=== PATIENT | female | born 1995 | race Hispanic/Latino ===

== ENCOUNTER 2019-06-22 18:34 | Observation (INO) | payer OTHER ==
[2019-06-22 19:16] VITALS: BMI 26.4
[2019-06-22] MEDS ORDERED: hydrALAZINE 20 MG/ML VIAL SLOW IVP PRN ×2 (20:28→23:15)
[2019-06-22 21:21] LABS: Bacteria/HPF None Seen HPF (None Seen); Bilirubin Negative (Negative); Blood, Urine Negative (Negative); Clarity Clear (Clear); Glucose, Urine (Dipstick) Normal (Negative); Leukocyte 75 Leu/uL (Negative); Nitrite Negative (Negative); Protein, Urine (Dipstick) Negative (Neg-Trace); RBC/HPF 0-3 HPF (0-3); Squamous Epithelial 0-3 HPF (0-3); Urobilinogen Normal mg/dL (Less than 2); WBC/HPF 0-3 HPF (0-3)
[2019-06-22] MEDS ORDERED: Butorphanol Tartrate 1 MG/ML VIAL SLOW IVP PRN (21:36)
[2019-06-22] MEDS ORDERED: Lactated Ringer's 1,000 ML IV SCH (21:45)
[2019-06-22] MEDS ORDERED: Acetaminophen 500 MG TAB PO PRN (23:15)
[2019-06-22] MEDS ORDERED: Ondansetron PF 4 MG/2 ML Vial IVP PRN (23:15)
[2019-06-22] MEDS ORDERED: Zolpidem Tartrate 5 MG TAB PO PRN (23:15)
[2019-06-22] MEDS ORDERED: Promethazine HCl 25 MG/ML VIAL IM PRN (23:15)
--- NOTE | 2019-06-22 23:24 | PDOC.LDHP ---
Labor and Delivery H&P Chief complaint: contractions HPI: 24 yo LAF presents c/o UCs q 5-7 mins throughout the day. Denies SROM or LOF. Current gestational age (weeks): 34 Due date: 07/28/19 Dating criteria: last menstrual period Grav: 2 Para: 1 OB History Details: h/o at term. PNC currently with Dr. Aguilera, states has had UCs over last 3-4 weeks. Current complications: other (as above) Abnormal US findings: No Past Medical History: none Current medications: pre-lavern vitamins Previous surgical history: none Allergies/Adverse Reactions: Allergies Allergy/AdvReac Type Severity Reaction Status Date / Time No Known Drug Allergies Allergy Verified 04/12/13 18:39 Social history: none - Physical Exam Vital signs reviewed and normal: yes General: NAD Heart: RRR Lungs: CTAB Abdomen: gravid Extremeties: trace edema FHT: category 1 [place] contractions every: q 3-5 mins - Vaginal Exam cm dilated: 1 Effacement: 50% Station: -2 - OB Labs GBS: unknown - Assessment 34 6/7 weeks with PT UCs despite IV hydration and Stadol - Plan Plan: other (OBS tonight for further change, will start steroids for FLM and Observe closely. Dr. Aguilera notified.)
[2019-06-22] MEDS: Betamet Acet/Betamet Na Ph 30 MG/5 ML VIAL IM SCH (23:52)
[2019-06-23] MEDS: Lactated Ringer's 1,000 ML IV SCH ×2 (02:09→10:26)
[2019-06-23] MEDS: Meperidine HCl/PF 25 MG/ML VIAL SLOW IVP SCH ×8 (02:45→18:26)
--- NOTE | 2019-06-23 07:46 | PDOC.EVN ---
Event Note - Event Note Event Note: Contractions less painful. Active fetus. Received betamethasone at 2350.. O:AFVSS FHT's120's reactive CAT 1....contractions noted q 3 minutes but indentable. Cervix check 08/23/- vertex . BOWI... A/P: 35 weeks. Pre term contractions. No cervical change. Complete steroids dose tonight with continued observation. If no cervical change/labor discharge in AM...
[2019-06-24] MEDS: Betamet Acet/Betamet Na Ph 30 MG/5 ML VIAL IM SCH (00:05)
[2019-06-24 00:33] VITALS: TEMP 98.1
[2019-06-24] MEDS: Meperidine HCl/PF 25 MG/ML VIAL SLOW IVP SCH ×4 (00:34→06:39)
[2019-06-24] MEDS: Lactated Ringer's 1,000 ML IV SCH ×2 (00:35→02:05)
--- NOTE | 2019-06-24 07:38 | PDOC.EVN ---
Event Note - Event Note Event Note: Reports no further contractions since 1899..Active fetus. No loss 0f fluid or vaginal bleeding. O:AFVSS FHT"S 130's reactive. Category 1...No contractions noted. A/P: 24 y/o -36 weeks with contractions-resolved. Has received steroids. D/c home. has f/u 07/03...
--- NOTE | 2019-06-24 10:16 | DIS ---
DATE OF ADMISSION: 06/22/2019 DATE OF DISCHARGE: 06/24/2019 DISCHARGE DIAGNOSIS: uterine contractions at 35 weeks. SUMMARY OF HOSPITAL COURSE: Ms. Deras is a 24-year-old [place] female, G2, P1, who is at 35 weeks, who presented with regular painful contractions to Labor and Delivery. She was evaluated by the OB hospitalist, Dr. Timoteo Mathis, and was noted to have contractions occurring every 2 to 3 minutes. Cervical exam was 1, 25, -1. heart rate tracing was category 1. She had no vaginal bleeding, loss of fluid. She received IV fluids and Stadol for hydration and also had continued contractions though. No cervical change occurred. Due to the fact she was 35 weeks and possibility for an earlier delivery gave her steroid course of betamethasone. She completed that dose late last night and since approximately 1900 hours, she has had no further contractions. Cervical exam has been stable. heart rate tracing is category 1 with good activity. No loss of fluid or vaginal bleeding. She will be discharged home this morning. Modified bedrest at home until she gets approximately 37 weeks, so she can return back to routine activity. She has a followup on 07/03 in my office. Job ID: [id number]
== END 2019-06-24 07:52 | disposition home health service (06) ==
LOC: L&D/OP 18:34 → L&D 23:15
PROVIDERS: ADMIT Obstetrics & Gynecology; ATTEND Obstetrics & Gynecology
DX: O60.03 Preterm labor without delivery, third trimester (principal); Z3A.34 34 weeks gestation of pregnancy
CPT/HCPCS: 81003; 81015; 96361; 96372; 96374; 96375; 99285; G0378; J0595; J0702; J2175

== ENCOUNTER 2019-07-14 19:17 | Day surgery (SDC) | payer OTHER ==
[2019-07-14 20:08] VITALS: BP 102/78; TEMP 98.1; BMI 26.8
[2019-07-14] MEDS ORDERED: hydrALAZINE 20 MG/ML VIAL SLOW IVP PRN (21:59)
--- NOTE | 2019-07-14 22:22 | HP ---
TIME OF EVALUATION: 2144 to 2199. LOCATION: Labor and Delivery, bed 5 as a triage patient. This is a patient of Dr. Bibi Aguilera. REASON FOR EVALUATION/CHIEF COMPLAINT: Possible contractions. HISTORY OF PRESENT ILLNESS: This is a 24-year-old, G2, P1, at 38 weeks and 0 days with an EDC of 07/28, who sees Dr. Aguilera. She has a history of receiving steroids in the last several weeks as prophylaxis in case she went into labor, but now she is 38 weeks. Her cervix last week was 2 cm dilated and 50% effaced. She denies vaginal bleeding or leakage of fluid and she denies any recent trauma or intercourse. REVIEW OF SYSTEMS: Complete review of systems was checked and is otherwise negative unless specified in the HPI. PAST MEDICAL HISTORY: Negative. PAST SURGICAL HISTORY: None. PAST PSYCHIATRIC HISTORY: Includes mild anxiety and depression, but she does not need any medications. ALLERGIES: NONE. OB HISTORY: She has had 1 prior vaginal . PAST SURGICAL HISTORY: Negative. PHYSICAL EXAMINATION: VITAL SIGNS: Show a blood pressure of 102/78, pulse is in the 90s, and her O2 saturation is 98% on room air. Respirations are 16 and unlabored. GENERAL: Clinically, she has no acute distress. ABDOMEN: I evaluated the patient at bedside and find her abdomen to be soft and nontender. Baby is cephalic by Luis's. CERVIX: Cervical exam was performed by the nurse as 1st triage and it was 2 cm dilated, 50% effaced and 0 station for cervical exam. I reviewed the monitor in the room and the heart tones are 130s with reassuring findings. Contractions are low amplitude and irregular but it happened about every 5-6 minutes or so. ASSESSMENT: This is a 24-year-old, G2, P1, at 38 weeks at about 2 cm, which is the same as she was about a week ago. There is no evidence of true labor clinically. The patient also is comfortable going home and thought it would just be better to get checked, but did not suspect that she was into labor either. PLAN: 1. Reassurance given. 2. The patient told to keep her followup appointment. 3. No evidence of acute maternal or complication at this time. Job ID: [id number]
[2019-07-15] MEDS ORDERED: FLU VACC QS2019-20(6MOS UP)/PF 60 MCG/0.5 ML SYRINGE IM ONE (21:00)
== END 2019-07-14 22:14 | disposition home or self-care (01) ==
LOC: L&D/OP 19:17
PROVIDERS: ATTEND Obstetrics & Gynecology
DX: O47.1 False labor at or after 37 completed weeks of gestation (principal); O99.343 Other mental disorders complicating pregnancy, third trimester; F41.9 Anxiety disorder, unspecified; F32.9 Major depressive disorder, single episode, unspecified; Z3A.38 38 weeks gestation of pregnancy
CPT/HCPCS: 99283

== ENCOUNTER 2019-07-21 17:10 | Day surgery (SDC) | payer OTHER ==
[2019-07-21 17:54] VITALS: BMI 29.2
[2019-07-21] MEDS ORDERED: hydrALAZINE 20 MG/ML VIAL SLOW IVP PRN (19:10)
--- NOTE | 2019-07-21 19:14 | PDOC.LDHP ---
Labor and Delivery H&P Chief complaint: other (spotting) HPI: 24 y/o at 39w0d, patient of Dr. Aguilera, presents with spotting after her exam today. She was seen in the office at 3:00 and had a cervical exam (/-2). She noticed blood tinged mucus with wiping after that. She has been having ctx off and on for weeks but feels they intensified some after the exam. Denies LOF or decreased FM. ROS neg for HEENT, cv, pulm, gi, gu, neuro, psych, skin, musculoskeletal or constitutional symptoms other than mentioned above. OB History Details: 1 prior Current complications: none Past Medical History: None Current medications: pre-lavern vitamins Previous surgical history: none Allergies/Adverse Reactions: Allergies Allergy/AdvReac Type Severity Reaction Status Date / Time No Known Drug Allergies Allergy Verified 07/21/19 17:56 Social history: none - Physical Exam Vital signs reviewed and normal: yes General: NAD, resting Lungs: nonlabored breathing Abdomen: gravid Extremeties: no edema FHT: category 1 (130s, mod variability, + accels, no decels) [place] contractions every: 2-3 mins - Vaginal Exam cm dilated: 3 (unchanged from office, minimal old blood on glove) Effacement: 75% Station: -2 - Assessment 24 y/o at 39w0d with spotting after exam and no e/o active labor. status reassuring with reactive NST. - Plan -: D/c home with precautions. Advised to keep all appointments. Scheduled for induction next week.
== END 2019-07-21 17:55 | disposition home health service (06) ==
LOC: L&D/OP 17:10
PROVIDERS: ATTEND Obstetrics & Gynecology
DX: O26.853 Spotting complicating pregnancy, third trimester (principal); O47.1 False labor at or after 37 completed weeks of gestation; Z3A.39 39 weeks gestation of pregnancy

== ENCOUNTER 2019-07-24 06:58 | Inpatient (IN) | payer OTHER ==
[2019-07-24 07:51] VITALS: BMI 26.8
[2019-07-24 08:15] LABS: Amnisure Internal Control QC ACCEPTABLE (ACCEPTABLE)
[2019-07-24 08:17] LABS: Amnisure Test RUPTURE DETECTED (No Rupture)
[2019-07-24] MEDS ORDERED: Butorphanol Tartrate 1 MG/ML VIAL SLOW IVP PRN (09:03)
[2019-07-24] MEDS ORDERED: Lidocaine 1% (PF) 30 ML VIAL SC PRN ×2 (09:03→12:55)
[2019-07-24] MEDS ORDERED: hydrALAZINE 20 MG/ML VIAL SLOW IVP PRN ×2 (09:03→21:30)
[2019-07-24] MEDS ORDERED: NS / Oxytocin 40 units/1000ml 1,000 ML IV PRN ×2 (09:03→12:55)
[2019-07-24] MEDS ORDERED: HYDROcodone/Acetaminophen 5/325 mg Tablet PO PRN (09:03)
[2019-07-24] MEDS ORDERED: Ondansetron PF 4 MG/2 ML Vial IVP PRN ×2 (09:03→12:36)
[2019-07-24] MEDS ORDERED: Carboprost 250 MCG/ML AMP IM PRN (09:03)
[2019-07-24] MEDS ORDERED: Promethazine HCl 25 MG/ML VIAL IM PRN ×2 (09:03→12:36)
[2019-07-24] MEDS ORDERED: Acetaminophen 500 MG TAB PO PRN (09:03)
[2019-07-24] MEDS ORDERED: Misoprostol 200 MCG TAB PR PRN (09:03)
[2019-07-24] MEDS ORDERED: Ibuprofen 800 MG TAB PO PRN (09:03)
[2019-07-24] MEDS ORDERED: Methylergonovine 0.2 MG/ML VIAL IM PRN (09:03)
[2019-07-24 09:50] LABS: Hemoglobin 12.1 g/dL (12.0-16.0); Mean Corpuscular HGB CONC 34.5 g/dL (32.0-36.0); Mean Corpuscular Hemoglobin 30.6 pg (27.0-31.0); Mean Corpuscular Volume 88.6 fL (78.0-98.0); Mean Platelet Volume 9.1 fL (7.4-10.4); Platelet Count 199 thou/uL (130-400); RBC Distribution Width 12.3 % (11.5-14.5); Red Blood Cell (RBC) Count 3.97 mill/uL (4.20-5.40); White Blood Cell (WBC) Count 9.4 thou/uL (4.8-10.8)
[2019-07-24] MEDS ORDERED: Fentanyl 4 mcg/Bup 0.1% Cadd 100 ML ONE (10:28)
[2019-07-24 10:55] LABS: HBSAg Index 0.17 S/CO (0-0.99); Hep B Surf Ag Non-Reactive S/CO (NonReactive); Syphilis Antibody Nonreactive (Nonreactive); Syphilis Antibody Index 0.03 S/CO (<1.00 Non-Reactive)
[2019-07-24] MEDS: Lactated Ringer's 1,000 ML IV SCH ×2 (12:21→19:06)
[2019-07-24] MEDS ORDERED: NS w/ Oxytocin 10 units 500 ML ONE (12:32)
[2019-07-24] MEDS ORDERED: Lactated Ringer's 500 ML IV PRN (12:36)
[2019-07-24] MEDS ORDERED: Acetaminophen 325 MG TAB PO PRN (12:36)
[2019-07-24] MEDS ORDERED: ePHEDrine/0.9% NaCl/PF SYRINGE 50 mg/10 ml SLOW IVP PRN (12:36)
[2019-07-24] MEDS ORDERED: Naloxone HCl 0.4 mg/ml Vial IVP PRN ×2 (12:36)
[2019-07-24] MEDS ORDERED: diphenhydrAMINE 50 MG/ML VIAL IVP PRN (12:36)
[2019-07-24] MEDS ORDERED: Fentanyl 4 mcg/Bupivacaine 0.1% Cassette 100 ML EPIDURAL SCH (12:45)
[2019-07-24] MEDS ORDERED: Communication Order-Pharmacy FS SCH (12:45)
[2019-07-24] MEDS ORDERED: NS w/ Oxytocin 10 units 500 ML IV SCH (13:00)
[2019-07-24] MEDS ORDERED: Lidocaine 1% (PF) 30 ML VIAL ONE (20:24)
--- NOTE | 2019-07-24 21:29 | PDOC.OPDEL ---
OB Operative/Delivery Note Delivery Dr/Surgeon: Willy Pre-Delivery Diagnosis: active labor Procedure/Post Delivery Dx: spontaneous vaginal delivery Weeks gestation: 39 Anesthesia: epidural - Findings A Sex: male Weight: 9 lb 6 oz - 1 min: 7 - 5 min: 9 - Additional Findings/Plan Placenta delivered: spontaneous Repaired Obstetrical Laceration: periurethral Estimated blood loss: qbl 50 ml Post delivery plan: routine recovery
[2019-07-24] MEDS ORDERED: traMADol HCl 50 MG TAB PO PRN (21:30)
[2019-07-24] MEDS ORDERED: Bisacodyl 10 MG SUPP PR PRN (21:30)
[2019-07-24] MEDS ORDERED: Preparation H Ointment 28 GM TUBE PR PRN (21:30)
[2019-07-24] MEDS ORDERED: Milk Of Magnesia 30 ML UDCUP PO PRN (21:30)
[2019-07-24] MEDS ORDERED: Lanolin Ointment 7 GM TUBE TOP PRN (21:30)
[2019-07-24] MEDS ORDERED: Benzocaine-Menthol 82.5 ML CAN TOP PRN (21:30)
[2019-07-24] MEDS ORDERED: NS / Oxytocin 40 units/1000ml 1,000 ML IV SCH (21:30)
[2019-07-24] MEDS: Ibuprofen 800 MG TAB PO SCH (23:31)
[2019-07-25] MEDS: Ibuprofen 800 MG TAB PO SCH ×3 (05:48→21:17)
--- NOTE | 2019-07-25 06:29 | PDOC.PP ---
Post Progress Note Post Day #: 0-1 Subjective: Baby doing well. . PO intake tolerated: yes Flatus: yes Ambulation: yes Vital Signs (12 hours) Temp Pulse Resp BP Pulse Ox 07/25/19 04:40 98.0 F 65 121/79 07/25/19 01:20 98.4 F 69 114/67 07/24/19 23:15 98.3 F 93 18 107/63 100 Weight Weight 161 lb Result Diagrams: 07/24/19 09:35 Additional Labs: Post Labs Blood Type O POSITIVE 07/24/19 10:04 Hep Bs Antigen Non-Reactive S/CO (NonReactive) 07/24/19 09:35 - Assessment/Plan Post day 0-1. . Plan for discharge in AM. has 6 week follow up.
[2019-07-25] MEDS ORDERED: Adacel (T-DAP) 0.5 ML SYRINGE IM ONE (09:00)
[2019-07-25] MEDS: Docusate Calcium (SURFAK) 240 MG CAP PO SCH ×2 (09:34→21:17)
[2019-07-25] MEDS: Prenatal Vitamin 1 TAB PO SCH (09:34)
[2019-07-25] MEDS: Ferrous Sulfate 325 MG TAB PO SCH ×2 (14:10→18:53)
[2019-07-25 20:28] VITALS: TEMP 98.2
[2019-07-26] MEDS: Ibuprofen 800 MG TAB PO SCH (05:21)
--- NOTE | 2019-07-26 06:58 | PDOC.PP ---
Post Progress Note Post Day #: PPD2 Subjective: Resting, no complaints. PO intake tolerated: yes Flatus: yes Ambulation: yes Vital Signs (12 hours) Temp Pulse Resp BP Pulse Ox 07/25/19 21:10 96 07/25/19 19:20 98.2 F 70 12 118/66 99 Weight Weight 73.028 kg - Physical Examination General: NAD Respiratory: non-labored breathing Abdominal: lochia (scant) Neurological: no gross focal deficits Psychiatric: normal affect Result Diagrams: 07/24/19 09:35 Additional Labs: Post Labs Blood Type O POSITIVE 07/24/19 10:04 Hep Bs Antigen Non-Reactive S/CO (NonReactive) 07/24/19 09:35 - Assessment/Plan Doing well s/p . DC home. Precautions. RTC [address] Aguilera.
[2019-07-26] MEDS: Prenatal Vitamin 1 TAB PO SCH (08:12)
[2019-07-26] MEDS: Ferrous Sulfate 325 MG TAB PO SCH (08:12)
[2019-07-26] MEDS: Docusate Calcium (SURFAK) 240 MG CAP PO SCH (08:12)
[2019-07-26 08:35] VITALS: BP 129/85
== END 2019-07-26 13:15 | disposition home or self-care (01) | DRG 807 ==
LOC: L&D/OP 06:58 → L&D 09:28 → 3SW 07-25 00:20
PROVIDERS: ADMIT Obstetrics & Gynecology; ATTEND Obstetrics & Gynecology
PROC: 10E0XZZ Delivery of Products of Conception, External Approach (ICD-10-PCS; principal; 2019-07-24)
PROC: 0UQMXZZ Repair Vulva, External Approach (ICD-10-PCS; 2019-07-24)
DX: O71.82 Other specified trauma to perineum and vulva (principal); Z37.0 Single live birth; Z3A.39 39 weeks gestation of pregnancy
CPT/HCPCS: 36415; 84112; 85027; 86780; 86850; 86900; 86901; 87340; J2001; J2405; J2590

== ENCOUNTER 2023-12-09 11:08 | Emergency (ER) | payer MEDICAID, OTHER ==
[2023-12-09 12:00] LABS: #Basophils Less than 0.03 10x3/uL (0.0-0.2); %Basophils 0.1 % (0.0-1.0); %Eosinophils 4.4 % (0.0-10.0); %Lymphocytes 19.6 % (21.0-51.0); %Monocytes 6.8 % (0.0-10.0); %Neutrophils 68.4 % (42.0-75.0); Hemoglobin 11.5 g/dL (12.0-16.0); Mean Corpuscular HGB CONC 34.8 g/dL (32.0-36.0); Mean Corpuscular Hemoglobin 31.3 pg (27.0-31.0); Mean Corpuscular Volume 89.7 fL (78.0-98.0); Mean Platelet Volume 11.4 fL (7.4-10.4); Platelet Count 256 10x3/uL (130-400); RBC Distribution Width 13.2 % (11.5-14.5); Red Blood Cell (RBC) Count 3.68 mill/uL (4.20-5.40)
[2023-12-09 12:08] LABS: Bilirubin Negative (Negative); Blood, Urine Negative (Negative); Glucose, Urine (Dipstick) Negative (Negative); Ketone, Urine Negative (Negative); Leukocyte Negative (Negative); Nitrite Negative (Negative); Protein, Urine (Dipstick) Negative (Neg-Trace); Specific Gravity, Urine 1.015 (1.005-1.030); Urobilinogen 0.2 mg/dL (Less than 2); pH, Urine 7.5 (5.0-9.0)
[2023-12-09 12:19] LABS: CAUTI Indications for Culture Acute Hematuria; RBC/HPF 0-3 HPF (0-3); WBC/HPF 0-3 HPF (0-3)
[2023-12-09 12:20] LABS: Bacteria/HPF 1+ HPF (None Seen); Clarity Clear (Clear)
[2023-12-09 12:21] LABS: Urine Culture Reflex No No
[2023-12-09 13:00] LABS: ALT (SGPT) 21 U/L (8-55); AST (SGOT) 20 U/L (5-34); Albumin 3.1 g/dL (3.5-5.0); Alkaline Phosphatase 59 U/L (40-110); Anion Gap 10 mmol/L (10-20); BUN (Urea Nitrogen) 7 mg/dL (7.0-18.7); Bilirubin, Total 0.3 mg/dL (0.2-1.2); Calc. Creatinine Clearance 0 mL/min (70-130); Calcium 9.1 mg/dL (7.8-10.44); Carbon Dioxide 24 mmol/L (22-29); Chloride 108 mmol/L (98-107); Estimated GFR 122; Globulin 3.3 g/dL (2.4-3.5); Glucose 77 mg/dL (70-105); Lipase 17 U/L (8-78); Potassium 3.8 mmol/L (3.5-5.1); Protein, Total 6.4 g/dL (6.0-8.3); Sodium 138 mmol/L (136-145)
== END 2023-12-09 13:27 | disposition home or self-care (01) ==
LOC: ERS 11:08
DX: O99.891 Other specified diseases and conditions complicating pregnancy (principal); R10.9 Unspecified abdominal pain; Z3A.22 22 weeks gestation of pregnancy
CPT/HCPCS: 36415; 76815; 80053; 81001; 83690; 84702; 85025